=== PATIENT | female | born 1965 | race American Indian/Alaskan Native ===

== ENCOUNTER 2016-07-08 04:44 | Emergency (ER) | payer MEDICAID ==
[2016-07-08 05:22] LABS: Basophils % (Auto) 1.2 % (0.0-1.8); Eosinophils % (Auto) 2.1 % (0.0-4.3); Hematocrit 38.1 % (30.3-42.9); Hemoglobin 12.4 gm/dl (10.1-14.3); Mean Corpuscular HGB Conc 32 % (30-34); Mean Corpuscular Volume 78 fl (79-97); Platelet Count 303 K/mm3 (140-440); Red Blood Count 4.89 M/mm3 (3.65-5.03); Red Cell Distribution Width 16.4 % (13.2-15.2); White Blood Count 8.5 K/mm3 (4.5-11.0)
[2016-07-08 05:32] LABS: INR 0.95 (0.87-1.13)
[2016-07-08 05:33] LABS: Partial Thromboplastin Time 24.3 Sec. (24.2-36.6)
[2016-07-08 05:39] LABS: Mean Corpuscular Hemoglobin 25 pg (28-32)
[2016-07-08 05:45] LABS: Anion Gap 16 mmol/L; BUN/Creatinine Ratio 15.71; Blood Urea Nitrogen 11 mg/dL (7-17); Calcium 9.1 mg/dL (8.4-10.2); Carbon Dioxide 23 mmol/L (22-30); Chloride 104.5 mmol/L (98-107); Glucose 139 mg/dL (65-100); Potassium 4.4 mmol/L (3.6-5.0); Sodium 139 mmol/L (137-145)
[2016-07-08 11:42] VITALS: BP 150/76
[2016-07-08] MEDS ORDERED: MORPHINE ONE (12:27)
[2016-07-08] MEDS ORDERED: MORPHINE IM ONE (12:33)
[2016-07-08] MEDS ORDERED: PEPCID PO ONE (12:39)
--- NOTE | 2016-07-08 12:45 | Emergency Department Report ---
HPI - General Chief Complaint: Chest Pain Time Seen by Provider: 07/08/16 09:05 - HPI HPI: The patient is a 51-year-old female presents for evaluation of chest pain and abdominal pain. The patient reports midsternal chest pain and left upper quadrant abdominal pain for the past 3-4 days, constant since onset, burning in quality, 7/10 in severity currently, exacerbated with eating certain foods, and associated with recurrent belching. The patient denies fever, trauma to the chest or abdomen, neck pain, parasthesias, dyspnea, cough, hemoptysis, syncope, unilateral leg swelling, calf muscle pain, force of vomiting, hematemesis, diarrhea, dysuria, flank pain, history of DVT or PE, recent immobilization, or history of cancer. ED Past Medical Hx - Past Medical History Previous Medical History?: Yes Hx Hypertension: Yes Additional medical history: GERD - Not Taking Rx. Gout - Surgical History Past Surgical History?: No - Social History Smoking Status: Never Smoker Substance Use Type: None - Medications Home Medications: Home Medications Medication Instructions Recorded Confirmed Last Taken Type Acetaminophen/Codeine [Tylenol #3] 1 tab PO Q6H PRN #12 tab 07/08/16 Unknown Rx Omeprazole Magnesium [PriLOSEC Otc] 20 mg PO QDAY #14 tablet. 07/08/16 Unknown Rx ED Review of Systems ROS: Stated complaint: CHEST DISCOMFORT Other details as noted in HPI Constitutional: denies: fever ENT: denies: throat or neck pain Respiratory: denies: cough, shortness of breath Cardiovascular: reports chest pain Endocrine: denies unexplained weight loss or gain Gastrointestinal: reports abdominal pain, nausea Genitourinary: denies: dysuria Musculoskeletal: denies: leg swelling Skin: denies: rash Neurological: denies: headache Hematological/Lymphatic: denies: easy bleeding or easy bruising Psych: denies sadness or hopelessness Physical Exam - Physical Exam Vital Signs: Vital Signs 07/08/16 07/08/16 07/08/16 04:49 09:12 09:17 Temperature 98.5 F Pulse Rate 81 Respiratory 18 18 Rate Blood Pressure 152/89 Blood Pressure 170/97 [Right] O2 Sat by Pulse 100 100 100 Oximetry 07/08/16 07/08/16 07/08/16 09:21 09:30 09:41 Temperature Pulse Rate Respiratory Rate Blood Pressure 159/87 157/89 157/89 Blood Pressure [Right] O2 Sat by Pulse 99 100 100 Oximetry 07/08/16 07/08/16 07/08/16 09:51 10:00 10:11 Temperature Pulse Rate Respiratory Rate Blood Pressure 145/83 145/83 141/84 Blood Pressure [Right] O2 Sat by Pulse 100 100 100 Oximetry 07/08/16 07/08/16 07/08/16 10:21 10:31 10:41 Temperature Pulse Rate Respiratory Rate Blood Pressure 164/86 175/76 175/76 Blood Pressure [Right] O2 Sat by Pulse 100 99 100 Oximetry 07/08/16 07/08/16 07/08/16 10:51 11:01 11:11 Temperature Pulse Rate Respiratory Rate Blood Pressure 161/91 154/91 154/91 Blood Pressure [Right] O2 Sat by Pulse 100 100 100 Oximetry 07/08/16 07/08/16 07/08/16 11:21 11:30 12:34 Temperature Pulse Rate Respiratory 18 Rate Blood Pressure 151/81 150/76 Blood Pressure [Right] O2 Sat by Pulse 100 100 Oximetry Physical Exam: General: well-nourished, well-developed, no acute distress Head: Normocephalic, atraumatic Eyes: normal sclera ENT: Mucous membranes are pink and moist Neck: trachea midline, neck supple, No neck stiffness, no cervical adenopathy Respiratory: Breath sounds equal bilaterally, no wheezing, rales, or rhonchi Cardio: S1 and S2 present, no murmurs, rubs, gallops, capillary refill is brisk Abdomen: Normoactive bowel sounds, soft abdomen, left upper quadrant tenderness to palpation present, no pain at McBurney's point, Mckeon sign negative, no rigidity, no guarding or rebound tenderness Chest WALL/Back: Positive midsternal tenderness to palpation of the chest wall present no CVA tenderness with percussion Musc: No pitting edema Skin: No rash Neuro: no facial drooping, normal speech Psych: Normal affect ED Course Vital Signs 07/08/16 07/08/16 07/08/16 04:49 09:12 09:17 Temperature 98.5 F Pulse Rate 81 Respiratory 18 18 Rate Blood Pressure 152/89 Blood Pressure 170/97 [Right] O2 Sat by Pulse 100 100 100 Oximetry 07/08/16 07/08/16 07/08/16 09:21 09:30 09:41 Temperature Pulse Rate Respiratory Rate Blood Pressure 159/87 157/89 157/89 Blood Pressure [Right] O2 Sat by Pulse 99 100 100 Oximetry 07/08/16 07/08/16 07/08/16 09:51 10:00 10:11 Temperature Pulse Rate Respiratory Rate Blood Pressure 145/83 145/83 141/84 Blood Pressure [Right] O2 Sat by Pulse 100 100 100 Oximetry 07/08/16 07/08/16 07/08/16 10:21 10:31 10:41 Temperature Pulse Rate Respiratory Rate Blood Pressure 164/86 175/76 175/76 Blood Pressure [Right] O2 Sat by Pulse 100 99 100 Oximetry 07/08/16 07/08/16 07/08/16 10:51 11:01 11:11 Temperature Pulse Rate Respiratory Rate Blood Pressure 161/91 154/91 154/91 Blood Pressure [Right] O2 Sat by Pulse 100 100 100 Oximetry 07/08/16 07/08/16 07/08/16 11:21 11:30 12:34 Temperature Pulse Rate Respiratory 18 Rate Blood Pressure 151/81 150/76 Blood Pressure [Right] O2 Sat by Pulse 100 100 Oximetry ED Medical Decision Making - Lab Data Result diagrams: 07/08/16 04:57 07/08/16 04:57 - Medical Decision Making The patient was seen and examined by myself. The patient is placed on a auto body straightener and continuous pulse ox. On initial evaluation, the patient was found to be in no distress. EKG was negative for findings suggestive of acute cardiac infarct. Labs and imaging are obtained. The patient is given a tablet of Pepcid and an IM dose of morphine for her pain. Lab results were non- concerning including levels of troponin, WBC, hemoglobin, hematocrit, electrolytes, renal function. The patient was reevaluated and reported that their symptoms were markedly improved. As the patient has a ROBYN risk score less than 2, and a well's score less than 2, the patient is at low risk of ACS or pulmonary emboli etiology of their symptoms. The patient is stable for discharge with outpatient follow-up. The patient is given follow-up and return instructions. The patient expressed understanding and agreed with the plan. The patient is discharged in stable condition. Critical care attestation.: If time is entered above; I have spent that time in minutes in the direct care of this critically ill patient, excluding procedure time. ED Disposition Clinical Impression: Acute chest pain, Abdominal pain, acute, left upper quadrant Disposition: DISCHARGED TO HOME OR SELFCARE Is pt being admited?: No Does the pt Need Aspirin: No Condition: Stable Instructions: Chest Pain (ED), Diet for Ulcers and Gastritis (ED), Gastroesophageal Reflux Disease (ED), Gastritis (ED) Prescriptions: Acetaminophen/Codeine [Tylenol #3] 1 tab PO Q6H PRN #12 tab PRN Reason: Pain Omeprazole Magnesium [PriLOSEC Otc] 20 mg PO QDAY #14 tablet.dr Referrals: CEASAR BEAL JR, MD [Primary Care Provider] - 3-5 Days Time of Disposition: 12:41
== END 2016-07-08 13:24 | disposition home or self-care (01) ==
LOC: ED 04:44
DX: R07.2 Precordial pain (principal); R10.32 Left lower quadrant pain; I10 Essential (primary) hypertension; K21.9 Gastro-esophageal reflux disease without esophagitis; M10.9 Gout, unspecified
CPT/HCPCS: 36415; 80048; 84484; 84703; 85025; 85610; 85730; 93005; 93010; 96372; 99284; J2270